=== PATIENT | male | born 1975 | race Caucasian/White ===

== ENCOUNTER 2024-04-16 19:21 | Emergency (ER) | payer MEDICAID ==
[~2024-04-16] VITALS: Ht 170.2 cm; Wt 79.5 kg
[2024-04-16 19:26] VITALS: BP 172/136; PULSE 130; TEMP 98; O2SAT 99
[2024-04-16 19:36] VITALS: RESP 20
== END 2024-04-16 19:57 | disposition left against medical advice (07) ==
LOC: ER 19:21
DX: S00.81XA Abrasion of other part of head, initial encounter (principal); R56.9 Unspecified convulsions; R00.0 Tachycardia, unspecified; X58.XXXA Exposure to other specified factors, initial encounter; Y93.89 Activity, other specified; Y92.89 Other specified places as the place of occurrence of the external cause; Y99.8 Other external cause status
CPT/HCPCS: 99284